=== PATIENT | male | born 1940 | race Caucasian/White ===

== ENCOUNTER 2017-05-25 07:06 | Emergency (ER) | payer MEDICARE ==
[~2017-05-25] VITALS: Ht 182.9 cm; Wt 110.0 kg
[~2017-05-25 07:06] MED LIST: ADULT ASA81 M1 OR; ALEVE220 MG OR; ALPRAZOLAM0.25 MG PO; AMIODARONE200 MG PO; ANTIVERT OR; ARICEPT10 MG OR; ARICEPT10 MG PO; ASPIRIN81 MG PO; ATENOLOL50 MG OR; AUGMENTIN875TAB OR; BAYER CHEWABLE81 MG PO; CARDURA4 MG OR; CEFEPIME2 GM IV; CELEXA40 MG OR; CENTRUM OR; CENTRUM PO; CIPRO500 MG OR; CIPROFLOXACN500 MG PO; COUMADIN5 M1 IV; COUMADIN5 MG OR; COUMADIN7.5 MG OR; DILAUDID2 MG OR; DOCUSATE CAL240 MG PO; DOXYCYCL HYC100 MG PO; DULOXETINE HCL60 MG PO; ENALAPRIL5 MG OR; FISH OIL OR; FLAX OIL PO; FLEXERIL5 M1 PO; FLOMAX0.4 MG OR; LISINOPRIL10 MG PO; LISINOPRIL20 MG PO; LISINOPRIL40 MG OR; LISINOPRIL5 MG OR; LORTAB 5 OR; LORTAB 5-325 MG1 TAB PO; LORTAB 5/3255 MG PO; LORTAB 7.5 OR; MEDDOSEPAK OR; MELOXICAM7.5 MG PO; MILK THISTLE250 MG PO; MILK THISTLE500 MG OR; MOBIC7.5 MG PO; MULTIVITAMI1 OR; MUPIROCIN2 % EX; NAPROXEN500 MG OR; OMEGA 31000 MG PO; OMEPRAZOLE20 MG OR; OMEPRAZOLE20 MG PO; ONDANSETRON4 MG PO; PAXIL20 MG OR; PERCOCET1 TA1 OR; PRAVACHOL40 MG PO; PRILOSEC OTC20 MG OR; PRILOSEC10 MG OR; PRILOSEC20 MG OR; PROBIOTIC ACIDOPHILU PO; RANITIDINE150 M1 PO; ROPINIROLE0.5 MG OR; ROPINIROLE0.5 MG PO; ROPINIROLE2 MG PO; SAVAYSA60 MG PO; SIMVASTATIN40 MG PO; SLEEP PO; TIZANIDINE2 MG PO; TRAMADOL HCL E100 M2 PO; TYLENOL500 MG OR; UNKNOWN MED; XANAX XR0.5 MG OR; XANAX0.25 MG PO; ZESTRIL40 MG OR; ZOCOR40 MG OR; ZOFRAN ODT4 MG SL; ZOSTAVAX IM; [UNRECOGNIZED DRUG - OTHER] PO
[2017-05-25] MEDS ORDERED: CYMBALTA60 MG PO (07:18)
[2017-05-25] MEDS ORDERED: PANTOPRAZOLE SO40 MG PO (07:18)
[2017-05-25] MEDS ORDERED: PRAVASTATIN20 MG PO (07:18)
[2017-05-25] MEDS ORDERED: DONEPEZIL5 MG PO (07:19)
[2017-05-25] MEDS ORDERED: LOSARTAN/HCT1 TA1 PO (07:22)
[2017-05-25] MEDS ORDERED: ROPINIROLE0.5 MG PO (07:23)
[2017-05-25] MEDS ORDERED: AMIODARONE200 MG PO (07:24)
[2017-05-25] MEDS ORDERED: ALPRAZOLAM0.25 MG PO (07:24)
[2017-05-25] MEDS ORDERED: ELIQUIS5 MG PO (07:24)
[2017-05-25] MEDS ORDERED: PERCOCET 5/325M1 TAB PO (07:47)
[2017-05-25 07:48] VITALS: BP 136/87
== END 2017-05-25 08:00 | disposition home or self-care (01) ==
LOC: ED 07:06
DX: S22.31XA Fracture of one rib, right side, initial encounter for closed fracture (principal); R07.81 Pleurodynia; W01.198A Fall on same level from slipping, tripping and stumbling with subsequent striking against other object, initial encounter; Y92.008 Other place in unspecified non-institutional (private) residence as the place of occurrence of the external cause

== ENCOUNTER 2017-07-16 13:59 | Emergency (ER) | payer MEDICARE ==
[~2017-07-16] VITALS: Ht 182.9 cm; Wt 120.0 kg
[~2017-07-16 13:59] MED LIST changes: +CYMBALTA60 MG PO; +DONEPEZIL5 MG PO; +ELIQUIS5 MG PO; +LOSARTAN/HCT1 TA1 PO; +PANTOPRAZOLE SO40 MG PO; +PERCOCET 5/325M1 TAB PO; +PRAVASTATIN20 MG PO
[2017-07-16 14:29] LABS: HEMATOCRIT 37.4 % (39.0-50.0); HEMOGLOBIN 12.3 g/dl (14.0-18.0); IMMATURE GRANULOCYTES 0.7 % (0.0-1.0); MEAN CELL VOLUME 101.6 fL CALC (80.0-100.0); MEAN CORPUSCULAR HGB 33.4 pG CALC (26.0-32.0); MEAN CORPUSCULAR HGB CONC 32.9 g/L CALC (32.0-36.0); NEUT# 5.48 thou/uL (1.82-7.42); RED BLOOD COUNT 3.68 mill/uL (4.70-6.10); RED CELL DISTRI WIDTH 12.4 % (11.5-15.5)
[2017-07-16 14:45] LABS: ALBUMIN 3.8 g/dL (3.2-5.0); ALKALINE PHOSPHATASE 67 u/l (38-126); ANION GAP 18 (6-22 (CALC)); BILIRUBIN, TOTAL 0.6 mg/dL (0.0-1.4); BUN 18 mg/dL (8-23); BUN/CREATININE RATIO 17 (12-20 (CALC)); CALCIUM 8.8 mg/dL (8.4-10.2); CARBON DIOXIDE 20 mmol/l (22-30); CHLORIDE 106 mmol/l (95-108); CREATININE 1.1 mg/dL (0.7-1.3); ETHYL ALCOHOL 165 mg/dl (0-30); GFR > 60 ML/MIN (>=60 (CALC)); GFR FOR AFR.AMER. > 60 ML/MIN (>=60 (CALC)); GLUCOSE 122 mg/dL (82-115); POTASSIUM 4.1 mmol/l (3.5-5.1); SGOT/AST 28 u/l (19-48); SGPT/ALT 28 u/l (11-66); SODIUM 140 mmol/l (137-146); TOTAL PROTEIN 6.7 g/dL (6.3-8.2)
[2017-07-16 14:56] LABS: MYOGLOBIN 88 ng/mL (0 - 121)
[2017-07-16 16:56] LABS: URINE BILIRUBIN - DIPSTICK NEGATIVE (NEGATIVE); URINE BLOOD DIPSTICK NEGATIVE (NEGATIVE); URINE CLARITY CLEAR; URINE COLOR YELLOW; URINE GLUCOSE - DIPSTICK NEGATIVE (NEGATIVE); URINE KETONE NEGATIVE (NEGATIVE); URINE LEUK ESTERASE NEGATIVE (NEGATIVE); URINE NITRITE - DIPSTICK NEGATIVE (Negative); URINE PH 5.5 (4.5-8.0); URINE PROTEIN - DIPSTICK NEGATIVE (NEG-TRACE); URINE SPECIFIC GRAVITY 1.015; URINE UROBILINOGEN - DIPSTICK 0.2 E.U./dL (0.2)
[2017-07-16 17:01] LABS: BARBITURATES NEGATIVE (NEGATIVE); COCAINE NEGATIVE (NEGATIVE); METHADONE NEGATIVE (NEGATIVE); OXCYCODONE NEGATIVE (NEGATIVE); TETRAHYDROCANNABIONOL NEGATIVE (NEGATIVE); TRICYLIC ANTIDEPRESSANTS NEGATIVE (NEGATIVE)
[2017-07-16 17:40] VITALS: BP 97/42
--- NOTE | 2017-07-18 09:55 | NUR ---
POSITIVE BLOOD CULTURE AFTER 24 HOURS OF NO GROWTH GRAM + COCCI I CALLED THE PATIENT AND HE IS EVCAUATING FROM [facility], THE PATIENT REPORTS FEELING WELL WITH NO FEVERS OR CHILLS I ADVISED THE PATINET TO GO TO THE ER IF CHILLS OR FEVER OCCUR OR IF HE BEGINS NOT TO FEEL WELL.
== END 2017-07-16 17:42 | disposition home or self-care (01) ==
LOC: ED 13:59
PROVIDERS: Emergency Medicine
DX: F10.929 Alcohol use, unspecified with intoxication, unspecified (principal); F19.90 Other psychoactive substance use, unspecified, uncomplicated; Y90.6 Blood alcohol level of 120-199 mg/100 ml; R41.82 Altered mental status, unspecified; R94.31 Abnormal electrocardiogram [ECG] [EKG]; I10 Essential (primary) hypertension; Z95.0 Presence of cardiac pacemaker; R55 Syncope and collapse; Y92.002 Bathroom of unspecified non-institutional (private) residence as the place of occurrence of the external cause

== ENCOUNTER 2018-02-21 02:29 | Inpatient (IN) | payer MEDICARE ==
[~2018-02-21] VITALS: Ht 182.9 cm; Wt 120.7 kg
--- NOTE | 2018-02-21 02:45 | NUR ---
BY WHEELCHAIR TO ROOM 9
[2018-02-21] MEDS ORDERED: CARBIDOPA/LEVOD1 TA4 PO (03:04)
[2018-02-21] MEDS ORDERED: MEMANTINE HCL10 MG PO (03:05)
[2018-02-21] MEDS ORDERED: EQ NATURAL LAX8.6 MG PO (03:06)
[2018-02-21] MEDS ORDERED: VITAMIN B 12100 MCG PO (03:07)
[2018-02-21] MEDS ORDERED: MILK THISTLE1000 MG PO (03:08)
[2018-02-21] MEDS ORDERED: COLON CLEANSE1 CAP PO (03:08)
[2018-02-21 03:56] LABS: HEMATOCRIT 46.9 % (39.0-50.0); HEMOGLOBIN 15.7 g/dl (14.0-18.0); IMMATURE GRANULOCYTES 2.7 % (0.0-1.0); MEAN CELL VOLUME 101.3 fL CALC (80.0-100.0); MEAN CORPUSCULAR HGB 33.9 pG CALC (26.0-32.0); MEAN CORPUSCULAR HGB CONC 33.5 g/L CALC (32.0-36.0); NEUT# 9.9 thou/uL (1.82-7.42); RED BLOOD COUNT 4.63 mill/uL (4.70-6.10); RED CELL DISTRI WIDTH 13.2 % (11.5-15.5)
[2018-02-21 04:25] LABS: ALBUMIN 3.9 g/dL (3.2-5.0); ALKALINE PHOSPHATASE 90 u/l (38-126); AMYLASE 90 u/l (30-110); ANION GAP 19 (6-22 (CALC)); BILIRUBIN, TOTAL 0.9 mg/dL (0.0-1.4); BUN 30 mg/dL (8-23); BUN/CREATININE RATIO 24 (12-20 (CALC)); CARBON DIOXIDE 22 mmol/l (22-30); CHLORIDE 105 mmol/l (95-108); CREATININE 1.3 mg/dL (0.7-1.3); GFR 53 ML/MIN (>=60 (CALC)); GFR FOR AFR.AMER. > 60 ML/MIN (>=60 (CALC)); LIPASE 244 u/l (23-300); POTASSIUM 4.7 mmol/l (3.5-5.1); SGOT/AST 31 u/l (19-48); SGPT/ALT 51 u/l (11-66); SODIUM 142 mmol/l (137-146); TOTAL PROTEIN 7.1 g/dL (6.3-8.2)
--- NOTE | 2018-02-21 05:21 | NUR ---
ADVISED OF CONTINUING NPO STATUS,PT HAS NO BELCHING OR VOMITING.
--- NOTE | 2018-02-21 06:28 | NUR ---
REPORT TO BROOKLYN MEJÍA ON MS
--- NOTE | 2018-02-21 06:35 | NUR ---
PT TO MS2 VIA STRETCHER RN ESCORT IN IMPROVED STABLE CONDITION.TOTAL NG OUTPUT 650CC
[2018-02-21 06:38] VITALS: BP 156/77
--- NOTE | 2018-02-21 07:00 | NUR ---
PATIENT ARRIVED TO THE FLOOR AT 0638 VIA STRETCHER WITH ER STAFF IN ATTENDANCE. PATIENT AWAKE ALERT AND ORIENTEDX3. PATIENT WITH MIN ASSIST FROM STRETCHER TO BED WITH USE OF CANE-UNSTEADY GAIT. PATIENT WITH IVF NS PATENT WITH BOLUS IN PROGRESS VIA LEFT FOREARM SITE. SITE APPEARS HEALTHY AT THIS TIME. PATIENT WITH #16 POLISH NGT TO LIWS-DRAINING SMALL AMT OF BEIGE FLUID. ABD IS DISTENDED BUT SOFT-PATIENT STATES THAT HE IS FEELING MUCH BETTER AT THIS TIME. NPO, AT BEDSIDE. ORIENTED TO ROOM AND SURROUNDINGS. INSTRUCTED ON USE OF NURSE CALL LIGHT SYSTEM AND TV REMOTE. PATIENT WITH HISTORY OF MRSA-NASAL SWAB OBTAINED AND PATIENT PLACE ON CONTACT FOR HX OF MRSA. CALL LIGHT IN REACH. WILL CONT TO MONITOR.
--- NOTE | 2018-02-21 07:15 | NUR ---
RECEIVED BEDSIDE REPORT FROM BROOKLYN MEJÍA. RESTING IN SEMI FOWLERS, RESPS EVEN AND UNLABORED ON ROOM AIR, NG TUBE TO LIS, DRAINING SMALL AMT BEIGE COLORED FLUID. ABD DISTENDED, SOFT, PT REPORTS FEELING MUCH BETTER THAN A FEW HOURS AGO. #20 LFA INFUSING WITHOUT DIFFICULTY, SITE APPEARS HEALTHY. AT BEDSIDE. PLAN OF CARE DISCUSSED. SAFETY PRECAUTIONS REINFORCED. BED IN LOWEST POSITION WITH WHEELS LOCKED. CALL LIGHT WITHIN REACH. ENCOURAGED PT AND TO CALL FOR ANY NEEDS.
[2018-02-21 07:37] VITALS: BP 148/71
[2018-02-21 08:33] LABS: URINE BILIRUBIN - DIPSTICK NEGATIVE (NEGATIVE); URINE BLOOD DIPSTICK NEGATIVE (NEGATIVE); URINE COLOR YELLOW; URINE GLUCOSE - DIPSTICK NEGATIVE (NEGATIVE); URINE KETONE NEGATIVE (NEGATIVE); URINE LEUK ESTERASE NEGATIVE (NEGATIVE); URINE NITRITE - DIPSTICK NEGATIVE (Negative); URINE PROTEIN - DIPSTICK NEGATIVE (NEG-TRACE)
[2018-02-21 08:34] LABS: URINE CLARITY CLEAR
--- NOTE | 2018-02-21 11:08 | NUR ---
ASSISTED TO BATHROOM WITH STAND BY ASSIST. LARGE FORMED BROWN BM WITH STRONG ODOR. PT REPORTS "FEELING LIKE A WEIGHT LIFTED OFF ME." NG TUBE PATENT TO LEFT NARE, LIS WITH BEIGE FLUID. #20 LFA INFUSING WITHOUT DIFFICULTY, SITE APPEARS HEALTHY. CALL LIGHT WITHIN REACH. WILL CONTINUE TO MONITOR.
[2018-02-21 11:44] VITALS: BP 142/72
--- NOTE | 2018-02-21 12:30 | NUR ---
DR ALVES AT BEDSIDE, NEW ORDERS RECEIVED.
--- NOTE | 2018-02-21 14:18 | NUR ---
TO RADIOLOGY IN STABLE CONDITION VIA WHEELCHAIR ACCOMPANIED BY ALAN EDMONDSON.
--- NOTE | 2018-02-21 14:35 | NUR ---
RETURNED FROM RADIOLOGY VIA WHEELCHAIR ACCOMPANIED BY ALAN EDMONDSON. AMBULATED TO BEDSIDE CHAIR WITH STAND BY ASSIST. RESPS EVEN AND UNABORED ON ROOM AIR, TELE MONITOR IN PLACE. #20 LFA INFUSING WITHOUT DIFFICULTY, SITE APPEARS HEALTHY. NG TUBE TO LIS IN LEFT NARE, DRAINING BEIGE COLORED FLUID. DENIES PAIN OR DISCOMFORT. CALL LIGHT WITHIN REACH. WILL CONTINUE TO MONITOR.
--- NOTE | 2018-02-21 15:00 | NUR ---
DR CONTRERAS AT BEDSIDE, NEW ORDERS RECEIVED.
[2018-02-21 16:24] LABS: C. DIFFICILE TOXIN A&B NEGATIVE (NEGATIVE)
--- NOTE | 2018-02-21 16:33 | NUR ---
ASSISTED TO BATHROOM WITH STAND BY ASSIST, LISA TAYLOR FORMED BM. RESPS EVEN AND UNLABORED ON ROOM AIR, TELE MONITOR IN PLACE. #20 LFA INFUSING WITHOUT DIFFICULTY, SITE APPEARS HEALTHY. DENIES PAIN OR DISCOMFORT. PO FLUIDS OFFERED. CALL LIGHT WITHIN REACH. ENCOURAGED PT TO CALL FOR ANY NEEDS.
[2018-02-21 16:45] VITALS: BP 144/70
--- NOTE | 2018-02-21 18:02 | NUR ---
TOLERATED LIQUID DIET WITHOUT C/O NAUSEA OR ABD PAIN.
--- NOTE | 2018-02-21 19:45 | NUR ---
PATIENT AWAKE ALERT AND ORIENTEDX3-ASSISTED TO STAND AT THE SIDE OF THE BED TO VOID 600CC O F CLEAR YELLOW URINE. ASSISTED BACK TO THE BED. NO COMPLAINTS AT THIS TIME-STATES FEELING MUCH BETTER TONIGHT-NO N/V, NO PAIN. HAVING BM'S TODAY. ABD IS SOFT WITH BS+. LUNGS CLEAR. NO PEDAL EDEMA NOTED WITH PULSES PALPABLE. TELE MONITORING DEVICE IN PLACE SHOWING SR WITH ER MONITORING. IV SITE TO LEFT ARM WITH IVF PATENT AND INFUSING ORDERED. SITE APPEARS HEALTHY AT THIS TIME. SAFETY PRECAUTIONS REINFORCED.CALL LIGHT IN REACH. WILL CONT TO MONITOR.
[2018-02-21 20:01] VITALS: BP 179/72
[2018-02-21 20:54] VITALS: BP 151/69
[2018-02-22 00:01] VITALS: BP 168/72
--- NOTE | 2018-02-22 00:08 | NUR ---
PATIENT RESTING IN BED WITH NO COMPLAINTS AT THIS TIME. IV ZOSYN HUNG ORDERED. VS TAKEN AND RECORDED. PATIENT WITH CHRONIC HIP AND BACK PAIN BUT DECLINES ANY PAIN MEDS AT THIS TIME. CONT TO VOID CLER YELLOW URINE IN URINAL. SAFETY PRECAUTIONS REINFORCED.CALL LIGHT IN REACH. WILL CONT TO MONITOR.
[2018-02-22 03:50] VITALS: BP 157/77
[2018-02-22 04:49] LABS: MEAN CELL VOLUME 103.9 fL CALC (80.0-100.0); MEAN CORPUSCULAR HGB 34.3 pG CALC (26.0-32.0); RED BLOOD COUNT 3.88 mill/uL (4.70-6.10)
--- NOTE | 2018-02-22 04:55 | NUR ---
PATIENT CONT TO VOID CLEAR YELLOW URINE IN URINAL. NO COMPLAINTS AT THIS TIME. IVF NS PATENT AND INFUSING AT 100CC/HR. VS TAKEN AND RECORDED. CALL LIGHT IN REACH. WILL CONT TO MONITOR.
[2018-02-22 04:57] LABS: HEMATOCRIT 40.3 % (39.0-50.0); HEMOGLOBIN 13.3 g/dl (14.0-18.0)
[2018-02-22 05:02] LABS: ANION GAP 12 (6-22 (CALC)); BUN 21 mg/dL (8-23); BUN/CREATININE RATIO 20 (12-20 (CALC)); CARBON DIOXIDE 25 mmol/l (22-30); CHLORIDE 107 mmol/l (95-108); CREATININE 1.1 mg/dL (0.7-1.3); GFR > 60 ML/MIN (>=60 (CALC)); GFR FOR AFR.AMER. > 60 ML/MIN (>=60 (CALC)); POTASSIUM 4.5 mmol/l (3.5-5.1); SODIUM 139 mmol/l (137-146)
--- NOTE | 2018-02-22 07:22 | NUR ---
RECEIVED BEDSIDE REPORT FROM BROOKLYN MEJÍA. RESTING IN SEMI FOWLERS WITH EYES CLOSED, AWAKENS EASILY. RESPS EVEN AND UNLABORED ON ROOM AIR, TELE MONITOR IN PLACE. #20 LFA INFUSING WITHOUT DIFFICULTY. SITE APPEARS HEALTHY. DENIES PAIN OR DISCOMFORT. PLAN OF CARE DISCUSSED. SAFETY PRECAUTIONS REINFORCED. BED IN LOWEST POSITION WITH WHEELS LOCKED. CALL LIGHT WITHIN REACH. ENCOURAGED PT TO CALL FOR ANY NEEDS.
[2018-02-22 07:34] VITALS: BP 150/70
[2018-02-22 08:09] VITALS: BP 150/70
--- NOTE | 2018-02-22 08:53 | NUR ---
TOLERATED REGULAR DIET WITHOUT C/O ABD PAIN OR NAUSEA.
--- NOTE | 2018-02-22 09:20 | NUR ---
DR ALVES AT BEDSIDE, NEW ORDERS RECEIVED.
[2018-02-22] MEDS ORDERED: METRONIDAZOL500 MG PO (10:02)
[2018-02-22] MEDS ORDERED: AUGMENTIN875TAB PO (10:02)
--- NOTE | 2018-02-22 11:14 | NUR ---
IV site discontinued, cath intact. No edema , no redness, voices no discomfort.
--- NOTE | 2018-02-22 11:30 | NUR ---
Discharge instructions given. Patient verbalizes understanding of same. Discharged in stable condition via Wheelchair to Home with spouse. All belongings sent with pt.
== END 2018-02-22 11:29 | disposition home or self-care (01) | DRG 390 ==
LOC: ED 02:29 → ED-I 05:45 → ED 06:25 → MS2 06:26
PROVIDERS: Emergency Medicine; ADMIT Internal Medicine; ATTEND Internal Medicine
PROC: 0D9670Z Drainage of Stomach with Drainage Device, Via Natural or Artificial Opening (ICD-10-PCS; principal; 2018-02-21)
DX: K56.609 Unspecified intestinal obstruction, unspecified as to partial versus complete obstruction (principal); G20 Parkinson's disease; I48.91 Unspecified atrial fibrillation; F32.9 Major depressive disorder, single episode, unspecified; F41.9 Anxiety disorder, unspecified; G25.81 Restless legs syndrome; G31.84 Mild cognitive impairment of uncertain or unknown etiology; I10 Essential (primary) hypertension; M19.90 Unspecified osteoarthritis, unspecified site; K64.9 Unspecified hemorrhoids; G47.30 Sleep apnea, unspecified; Z86.711 Personal history of pulmonary embolism; Z95.2 Presence of prosthetic heart valve; Z95.0 Presence of cardiac pacemaker; Z22.322 Carrier or suspected carrier of Methicillin resistant Staphylococcus aureus
CPT/HCPCS: Q9967; S0164

== ENCOUNTER 2019-01-31 06:48 | Emergency (ER) | payer MEDICARE ==
[~2019-01-31] VITALS: Ht 182.9 cm; Wt 121.8 kg
[~2019-01-31 06:48] MED LIST changes: +AUGMENTIN875TAB PO; +CARBIDOPA/LEVOD1 TA4 PO; +COLON CLEANSE1 CAP PO; +EQ NATURAL LAX8.6 MG PO; +MEMANTINE HCL10 MG PO; +METRONIDAZOL500 MG PO; +MILK THISTLE1000 MG PO; +VITAMIN B 12100 MCG PO
[2019-01-31 07:40] LABS: HEMATOCRIT 40.6 % (39.0-50.0); HEMOGLOBIN 13.2 g/dl (14.0-18.0); IMMATURE GRANULOCYTES 0.7 % (0.0-5.0); MEAN CELL VOLUME 100.2 fL CALC (80.0-100.0); MEAN CORPUSCULAR HGB 32.6 pG CALC (26.0-32.0); MEAN CORPUSCULAR HGB CONC 32.5 g/L CALC (32.0-36.0); NEUT# 3.76 thou/uL (1.82-7.42); RED BLOOD COUNT 4.05 mill/uL (4.70-6.10); RED CELL DISTRI WIDTH 13.2 % (11.5-15.5)
[2019-01-31 08:02] LABS: ALBUMIN 3.7 g/dL (3.2-5.0); ALKALINE PHOSPHATASE 76 u/l (38-126); ANION GAP 11 (6-22 (CALC)); BILIRUBIN, TOTAL 0.8 mg/dL (0.0-1.4); BUN 15 mg/dL (8-23); BUN/CREATININE RATIO 15 (12-20 (CALC)); CARBON DIOXIDE 27 mmol/l (22-30); CHLORIDE 106 mmol/l (95-108); GFR > 60 ML/MIN (>=60 (CALC)); GFR FOR AFR.AMER. > 60 ML/MIN (>=60 (CALC)); POTASSIUM 4.3 mmol/l (3.5-5.1); SGOT/AST 30 u/l (19-48); SODIUM 140 mmol/l (137-146); TOTAL PROTEIN 6.3 g/dL (6.3-8.2)
[2019-01-31 09:18] VITALS: BP 165/56
== END 2019-01-31 09:22 | disposition home or self-care (01) ==
LOC: ED 06:48
PROVIDERS: Emergency Medicine
DX: S80.11XA Contusion of right lower leg, initial encounter (principal); I10 Essential (primary) hypertension; I48.91 Unspecified atrial fibrillation; G20 Parkinson's disease; W19.XXXA Unspecified fall, initial encounter; Z86.711 Personal history of pulmonary embolism; Z79.01 Long term (current) use of anticoagulants; M79.661 Pain in right lower leg; M79.89 Other specified soft tissue disorders

== ENCOUNTER 2019-07-04 09:33 | Emergency (ER) | payer MEDICARE ==
[~2019-07-04] VITALS: Ht 182.9 cm; Wt 123.0 kg
[2019-07-04 11:01] LABS: HEMATOCRIT 41.3 % (39.0-50.0); HEMOGLOBIN 13.6 g/dl (14.0-18.0); IMMATURE GRANULOCYTES 0.6 % (0.0-5.0); MEAN CELL VOLUME 99.5 fL CALC (80.0-100.0); MEAN CORPUSCULAR HGB 32.8 pG CALC (26.0-32.0); MEAN CORPUSCULAR HGB CONC 32.9 g/L CALC (32.0-36.0); NEUT# 4.52 thou/uL (1.82-7.42); RED BLOOD COUNT 4.15 mill/uL (4.70-6.10); RED CELL DISTRI WIDTH 13.2 % (11.5-15.5)
[2019-07-04] MEDS ORDERED: ELIQUIS5 MG PO (11:08)
[2019-07-04 11:09] LABS: ALBUMIN 4.1 g/dL (3.2-5.0); ALKALINE PHOSPHATASE 67 u/l (38-126); AMYLASE 112 u/l (30-110); ANION GAP 9 (6-22 (CALC)); BILIRUBIN, TOTAL 0.7 mg/dL (0.0-1.4); BUN 20 mg/dL (8-23); BUN/CREATININE RATIO 16 (12-20 (CALC)); CARBON DIOXIDE 28 mmol/l (22-30); CHLORIDE 107 mmol/l (95-108); CREATININE 1.2 mg/dL (0.7-1.3); GFR 58 ML/MIN (>=60 (CALC)); GFR FOR AFR.AMER. > 60 ML/MIN (>=60 (CALC)); LIPASE 188 u/l (23-300); POTASSIUM 4.5 mmol/l (3.5-5.1); SGOT/AST 48 u/l (19-48); SODIUM 139 mmol/l (137-146); TOTAL PROTEIN 7.1 g/dL (6.3-8.2)
[2019-07-04] MEDS ORDERED: LEVO PO (11:10)
[2019-07-04] MEDS ORDERED: CARB PO (11:10)
[2019-07-04] MEDS ORDERED: PRAVASTATIN40 MG PO (11:10)
[2019-07-04] MEDS ORDERED: CYMBALTA60 MG PO (11:11)
[2019-07-04] MEDS ORDERED: COZAAR25 MG PO (11:11)
[2019-07-04] MEDS ORDERED: MEMANTINE HCL10 MG PO (11:11)
[2019-07-04] MEDS ORDERED: MECLIZINE HCL25 MG PO (11:12)
[2019-07-04] MEDS ORDERED: AMIODARONE200 MG PO (11:12)
[2019-07-04] MEDS ORDERED: DONEPEZIL10 MG PO (11:13)
[2019-07-04] MEDS ORDERED: ROPINIROLE0.5 MG PO (11:13)
[2019-07-04] MEDS ORDERED: PROTONIX40 M2 PO (11:13)
[2019-07-04] MEDS ORDERED: VITAMIN B-121000 MCG PO (11:14)
[2019-07-04] MEDS ORDERED: MILK THISTLE175 M1 PO (11:15)
[2019-07-04 12:42] LABS: URINE BILIRUBIN - DIPSTICK NEGATIVE (NEGATIVE); URINE BLOOD DIPSTICK NEGATIVE (NEGATIVE); URINE COLOR YELLOW; URINE GLUCOSE - DIPSTICK NEGATIVE (NEGATIVE); URINE KETONE NEGATIVE (NEGATIVE); URINE LEUK ESTERASE NEGATIVE (NEGATIVE); URINE NITRITE - DIPSTICK NEGATIVE (Negative); URINE PROTEIN - DIPSTICK NEGATIVE (NEG-TRACE); URINE UROBILINOGEN - DIPSTICK 0.2 E.U./dL (0.2)
[2019-07-04] MEDS ORDERED: VICODIN1 TA1 PO (14:12)
[2019-07-04 14:15] VITALS: BP 116/56
== END 2019-07-04 14:34 | disposition home or self-care (01) ==
LOC: ED 09:33
DX: K43.9 Ventral hernia without obstruction or gangrene (principal); I10 Essential (primary) hypertension; I48.91 Unspecified atrial fibrillation; G20 Parkinson's disease; Z95.2 Presence of prosthetic heart valve
CPT/HCPCS: Q9967

== ENCOUNTER 2019-11-11 | Emergency (ER) | payer MEDICARE ==
[~2019-11-11] MED LIST changes: +CARB PO; +COZAAR25 MG PO; +DONEPEZIL10 MG PO; +LEVO PO; +MECLIZINE HCL25 MG PO; +MILK THISTLE175 M1 PO; +PRAVASTATIN40 MG PO; +PROTONIX40 M2 PO; +VICODIN1 TA1 PO; +VITAMIN B-121000 MCG PO
[2019-11-11 15:49] LABS: HEMATOCRIT 42.1 % (39.0-50.0); HEMOGLOBIN 13.7 g/dl (14.0-18.0); IMMATURE GRANULOCYTES 0.8 % (0.0-5.0); MEAN CELL VOLUME 99.5 fL CALC (80.0-100.0); MEAN CORPUSCULAR HGB 32.4 pG CALC (26.0-32.0); MEAN CORPUSCULAR HGB CONC 32.5 g/L CALC (32.0-36.0); NEUT# 6.09 thou/uL (1.82-7.42); RED BLOOD COUNT 4.23 mill/uL (4.70-6.10); RED CELL DISTRI WIDTH 13.2 % (11.5-15.5)
[2019-11-11 16:08] LABS: ALBUMIN 3.9 g/dL (3.2-5.0); ALKALINE PHOSPHATASE 74 u/l (38-126); ANION GAP 11 (6-22 (CALC)); BILIRUBIN, TOTAL 0.7 mg/dL (0.0-1.4); BUN 19 mg/dL (8-23); BUN/CREATININE RATIO 18 (12-20 (CALC)); CARBON DIOXIDE 26 mmol/l (22-30); CHLORIDE 106 mmol/l (95-108); CREATININE 1.1 mg/dL (0.7-1.3); GFR > 60 ML/MIN (>=60 (CALC)); GFR FOR AFR.AMER. > 60 ML/MIN (>=60 (CALC)); LIPASE 116 u/l (23-300); POTASSIUM 4.4 mmol/l (3.5-5.1); SGOT/AST 35 u/l (19-48); SODIUM 139 mmol/l (137-146); TOTAL PROTEIN 6.9 g/dL (6.3-8.2)
[2019-11-11 17:21] LABS: URINE BLOOD DIPSTICK TRACE-INTACT (NEGATIVE); URINE COLOR YELLOW; URINE GLUCOSE - DIPSTICK NEGATIVE (NEGATIVE); URINE KETONE NEGATIVE (NEGATIVE); URINE LEUK ESTERASE NEGATIVE (NEGATIVE); URINE NITRITE - DIPSTICK NEGATIVE (Negative); URINE PH 5.5 (4.5-8.0); URINE PROTEIN - DIPSTICK NEGATIVE (NEG-TRACE); URINE SPECIFIC GRAVITY >=1.030
[2019-11-11 17:26] LABS: URINE BILIRUBIN - DIPSTICK NEGATIVE (NEGATIVE)
[2019-11-11] MEDS ORDERED: CYCLOBENZAPR5 MG PO (17:36)
== END 2019-11-11 18:13 | disposition home or self-care (01) ==
PROVIDERS: Family Medicine
DX: R10.9 Unspecified abdominal pain (principal); I10 Essential (primary) hypertension; I48.91 Unspecified atrial fibrillation; G20 Parkinson's disease; Z95.0 Presence of cardiac pacemaker; Z86.711 Personal history of pulmonary embolism

== ENCOUNTER 2019-12-08 | Emergency (ER) | payer MEDICARE ==
[~2019-12-08] MED LIST changes: +CYCLOBENZAPR5 MG PO
[2019-12-08] MEDS ORDERED: NAPROXEN500 MG PO ×2 (11:25→11:41)
== END 2019-12-08 11:50 | disposition home or self-care (01) ==
DX: M19.072 Primary osteoarthritis, left ankle and foot (principal); I10 Essential (primary) hypertension; I48.91 Unspecified atrial fibrillation; G20 Parkinson's disease

== ENCOUNTER 2020-06-30 10:36 | Emergency (ER) | payer MEDICARE ==
[~2020-06-30] VITALS: Ht 182.9 cm; Wt 102.3 kg
[~2020-06-30 10:36] MED LIST changes: +NAPROXEN500 MG PO
[2020-06-30 11:31] LABS: GFR 58 ML/MIN (>=60 (CALC)); GFR FOR AFR.AMER. > 60 ML/MIN (>=60 (CALC))
[2020-06-30 11:34] LABS: HEMATOCRIT 42.5 % (39.0-50.0); HEMOGLOBIN 13.6 g/dl (14.0-18.0); IMMATURE GRANULOCYTES 0.4 % (0.0-5.0); MEAN CELL VOLUME 99.8 fL CALC (80.0-100.0); MEAN CORPUSCULAR HGB 31.9 pG CALC (26.0-32.0); NEUT# 5.36 thou/uL (1.82-7.42); RED BLOOD COUNT 4.26 mill/uL (4.70-6.10)
[2020-06-30 11:34] LABS: URINE BILIRUBIN - DIPSTICK NEGATIVE (NEGATIVE); URINE BLOOD DIPSTICK TRACE-INTACT (NEGATIVE); URINE COLOR YELLOW; URINE GLUCOSE - DIPSTICK NEGATIVE (NEGATIVE); URINE KETONE NEGATIVE (NEGATIVE); URINE LEUK ESTERASE NEGATIVE (NEGATIVE); URINE NITRITE - DIPSTICK NEGATIVE (Negative); URINE PROTEIN - DIPSTICK NEGATIVE (NEG-TRACE)
[2020-06-30 11:46] LABS: ALBUMIN 4.1 g/dL (3.2-5.0); ALKALINE PHOSPHATASE 75 u/l (38-126); ANION GAP 9 (6-22 (CALC)); BILIRUBIN, TOTAL 1.1 mg/dL (0.0-1.4); BUN 14 mg/dL (8-23); BUN/CREATININE RATIO 14 (12-20 (CALC)); CARBON DIOXIDE 25 mmol/l (22-30); CHLORIDE 107 mmol/l (95-108); GFR > 60 ML/MIN (>=60 (CALC)); GFR FOR AFR.AMER. > 60 ML/MIN (>=60 (CALC)); LIPASE 72 u/l (23-300); POTASSIUM 4.3 mmol/l (3.5-5.1); SGOT/AST 33 u/l (19-48); SODIUM 138 mmol/l (137-146); TOTAL PROTEIN 6.9 g/dL (6.3-8.2)
[2020-06-30 13:42] VITALS: BP 148/67
== END 2020-06-30 13:48 | disposition home or self-care (01) ==
LOC: ED 10:36
PROVIDERS: Family Medicine
DX: K43.9 Ventral hernia without obstruction or gangrene (principal); I10 Essential (primary) hypertension; I48.91 Unspecified atrial fibrillation; G20 Parkinson's disease; Z86.711 Personal history of pulmonary embolism; Z95.2 Presence of prosthetic heart valve
CPT/HCPCS: Q9967

== ENCOUNTER 2021-01-19 07:02 | Emergency (ER) | payer MEDICARE ==
[~2021-01-19] VITALS: Ht 182.9 cm; Wt 118.1 kg
[2021-01-19] MEDS ORDERED: VIT B-COMPLX100 MG IJ (07:22)
[2021-01-19] MEDS ORDERED: SENNA8.6 MG PO (07:22)
[2021-01-19 08:30] VITALS: BP 142/67
[2021-01-19] MEDS ORDERED: TORADOL PO ×2 (08:31→09:03)
== END 2021-01-19 08:40 | disposition home or self-care (01) ==
LOC: ED 07:02
DX: S22.080A Wedge compression fracture of T11-T12 vertebra, initial encounter for closed fracture (principal); M25.552 Pain in left hip; M47.816 Spondylosis without myelopathy or radiculopathy, lumbar region; I10 Essential (primary) hypertension; I48.91 Unspecified atrial fibrillation; G20 Parkinson's disease; F32.9 Major depressive disorder, single episode, unspecified; F41.9 Anxiety disorder, unspecified; W01.0XXA Fall on same level from slipping, tripping and stumbling without subsequent striking against object, initial encounter; Y92.009 Unspecified place in unspecified non-institutional (private) residence as the place of occurrence of the external cause; Z95.0 Presence of cardiac pacemaker; Z86.711 Personal history of pulmonary embolism

== ENCOUNTER 2021-06-30 14:09 | Emergency (ER) | payer MEDICARE ==
[~2021-06-30] VITALS: Ht 182.9 cm; Wt 118.0 kg
[~2021-06-30 14:09] MED LIST changes: +SENNA8.6 MG PO; +TORADOL PO; +VIT B-COMPLX100 MG IJ
[2021-06-30 14:56] LABS: HEMATOCRIT 42.6 % (39.0-50.0); HEMOGLOBIN 13.5 g/dl (14.0-18.0); IMMATURE GRANULOCYTES 0.3 % (0.0-5.0); MEAN CELL VOLUME 103.9 fL CALC (80.0-100.0); MEAN CORPUSCULAR HGB 32.9 pG CALC (26.0-32.0); MEAN CORPUSCULAR HGB CONC 31.7 g/dL CAL (32.0-36.0); NEUT# 6.7 thou/uL (1.82-7.42); RED BLOOD COUNT 4.1 mill/uL (4.70-6.10); RED CELL DISTRI WIDTH 12.5 % (11.5-15.5)
[2021-06-30 15:07] LABS: ALKALINE PHOSPHATASE 62 u/l (38-126); BILIRUBIN, TOTAL 0.6 mg/dL (0.0-1.4); BUN 26 mg/dL (8-23); BUN/CREATININE RATIO 20 (12-20 (CALC)); CARBON DIOXIDE 24 mmol/l (22-30); CHLORIDE 106 mmol/l (95-108); CREATININE 1.3 mg/dL (0.7-1.3); GFR 53 ML/MIN (>=60 (CALC)); GFR FOR AFR.AMER. > 60 ML/MIN (>=60 (CALC)); LIPASE 416 u/l (23-300); SGOT/AST 45 u/l (19-48); SODIUM 138 mmol/l (137-146); TOTAL PROTEIN 7.2 g/dL (6.3-8.2)
[2021-06-30 15:08] LABS: ALBUMIN 4.4 g/dL (3.2-5.0); ANION GAP 13 (6-22 (CALC)); POTASSIUM 5.3 mmol/l (3.5-5.1)
[2021-06-30 18:15] VITALS: BP 114/88
[2021-08-17] MEDS ORDERED: MILK THISTL2 PO (12:35)
== END 2021-06-30 18:15 | disposition home or self-care (01) ==
LOC: ED 14:09
PROVIDERS: Family Medicine
DX: R10.84 Generalized abdominal pain (principal); K43.9 Ventral hernia without obstruction or gangrene; I10 Essential (primary) hypertension; I48.91 Unspecified atrial fibrillation; G20 Parkinson's disease; F32.9 Major depressive disorder, single episode, unspecified; F41.9 Anxiety disorder, unspecified; Z86.711 Personal history of pulmonary embolism; Z95.0 Presence of cardiac pacemaker; Z95.2 Presence of prosthetic heart valve
CPT/HCPCS: Q9967

== ENCOUNTER 2021-08-21 06:18 | Day surgery (SDC) | payer MEDICARE ==
[~2021-08-21] VITALS: Ht 172.7 cm; Wt 118.8 kg
[~2021-08-21 06:18] MED LIST changes: +MILK THISTL2 PO
[2021-08-21 08:51] VITALS: BP 157/66
== END 2021-08-21 08:55 | disposition home or self-care (01) ==
LOC: ENDO 06:18 → ORM 07:45 → ENDO 07:45 → ORM 08:45 → ENDO 08:55
PROVIDERS: ATTEND Surgery
PROC: 0DBM8ZX Excision of Descending Colon, Via Natural or Artificial Opening Endoscopic, Diagnostic (ICD-10-PCS; principal; 2021-08-21)
PROC: 0DBN8ZX Excision of Sigmoid Colon, Via Natural or Artificial Opening Endoscopic, Diagnostic (ICD-10-PCS; 2021-08-21)
PROC: 0DJ08ZZ Inspection of Upper Intestinal Tract, Via Natural or Artificial Opening Endoscopic (ICD-10-PCS; 2021-08-21)
PROC: 3E0H8GC Introduction of Other Therapeutic Substance into Lower GI, Via Natural or Artificial Opening Endoscopic (ICD-10-PCS; 2021-08-21)
DX: Z12.11 Encounter for screening for malignant neoplasm of colon (principal); D12.4 Benign neoplasm of descending colon; D12.5 Benign neoplasm of sigmoid colon; K57.30 Diverticulosis of large intestine without perforation or abscess without bleeding; K29.70 Gastritis, unspecified, without bleeding; K44.9 Diaphragmatic hernia without obstruction or gangrene; I10 Essential (primary) hypertension; E78.5 Hyperlipidemia, unspecified; Z18.89 Other specified retained foreign body fragments; Z80.0 Family history of malignant neoplasm of digestive organs

== ENCOUNTER 2022-10-05 07:36 | Emergency (ER) | payer MEDICARE ==
[~2022-10-05] VITALS: Ht 172.7 cm; Wt 113.6 kg
[2022-10-05 07:52] VITALS: BP 156/55
[2022-10-05 08:16] VITALS: BP 150/71
[2022-10-05 08:17] LABS: HEMOGLOBIN 11.6 g/dl (14.0-18.0); IMMATURE GRANULOCYTES 0.2 % (0.0-5.0); MEAN CELL VOLUME 100.9 fL CALC (80.0-100.0); MEAN CORPUSCULAR HGB 33.4 pG CALC (26.0-32.0); MEAN CORPUSCULAR HGB CONC 33.1 g/dL CAL (32.0-36.0); NEUT# 6.11 thou/uL (1.82-7.42); RED BLOOD COUNT 3.47 mill/uL (4.70-6.10); RED CELL DISTRI WIDTH 12.9 % (11.5-15.5)
[2022-10-05 08:31] VITALS: BP 125/45
[2022-10-05 08:40] LABS: ALBUMIN 3.7 g/dL (3.2-5.0); ALKALINE PHOSPHATASE 68 u/l (38-126); ANION GAP 11 (6-22 (CALC)); BILIRUBIN, TOTAL 0.8 mg/dL (0.0-1.4); BUN 25 mg/dL (8-23); BUN/CREATININE RATIO 23 (12-20 (CALC)); CARBON DIOXIDE 24 mmol/l (22-30); CHLORIDE 110 mmol/l (95-108); CREATININE 1.1 mg/dL (0.7-1.3); GFR FOR AFR.AMER. > 60 ML/MIN (>=60 (CALC)); GFR OTHER RACES > 60 ML/MIN (>=60 (CALC)); POTASSIUM 4.4 mmol/l (3.5-5.1); SGOT/AST 21 u/l (19-48); SODIUM 140 mmol/l (137-146); TOTAL PROTEIN 6.3 g/dL (6.3-8.2)
[2022-10-05 08:46] VITALS: BP 135/56
[2022-10-05 09:01] VITALS: BP 139/50
[2022-10-05 09:13] VITALS: BP 139/50
== END 2022-10-05 09:33 | disposition home or self-care (01) ==
LOC: ED 07:36
PROVIDERS: Family Medicine
DX: S80.01XA Contusion of right knee, initial encounter (principal); S80.11XA Contusion of right lower leg, initial encounter; I10 Essential (primary) hypertension; E78.5 Hyperlipidemia, unspecified; W01.0XXA Fall on same level from slipping, tripping and stumbling without subsequent striking against object, initial encounter; Y92.009 Unspecified place in unspecified non-institutional (private) residence as the place of occurrence of the external cause; Z79.01 Long term (current) use of anticoagulants

== ENCOUNTER 2022-10-12 11:23 | Inpatient (IN) | payer MEDICARE ==
[2022-10-12] VITALS (24 sets, daily range): BP systolic 127–171; BP diastolic 57–80
[~2022-10-12] VITALS: Ht 172.7 cm; Wt 114.0 kg
--- NOTE | 2022-10-12 11:31 | NUR ---
PATIENT ESCORTED TO ROOM IN NAD. PROVIDER NOTIFIED OF PATIENT STATUS.
[2022-10-12 12:05] LABS: HEMATOCRIT 39.8 % (39.0-50.0); IMMATURE GRANULOCYTES 0.3 % (0.0-5.0); MEAN CELL VOLUME 101.8 fL CALC (80.0-100.0); MEAN CORPUSCULAR HGB 33.2 pG CALC (26.0-32.0); MEAN CORPUSCULAR HGB CONC 32.7 g/dL CAL (32.0-36.0); NEUT# 9.03 thou/uL (1.82-7.42); RED BLOOD COUNT 3.91 mill/uL (4.70-6.10); RED CELL DISTRI WIDTH 12.7 % (11.5-15.5)
[2022-10-12 12:18] LABS: ALBUMIN 4.3 g/dL (3.2-5.0); ALKALINE PHOSPHATASE 78 u/l (38-126); ANION GAP 10 (6-22 (CALC)); BILIRUBIN, TOTAL 0.5 mg/dL (0.0-1.4); BUN 20 mg/dL (8-23); BUN/CREATININE RATIO 19 (12-20 (CALC)); CARBON DIOXIDE 28 mmol/l (22-30); CHLORIDE 108 mmol/l (95-108); GFR FOR AFR.AMER. > 60 ML/MIN (>=60 (CALC)); GFR OTHER RACES > 60 ML/MIN (>=60 (CALC)); LIPASE 1416 u/l (23-300); SGOT/AST 32 u/l (19-48); SODIUM 142 mmol/l (137-146); TOTAL PROTEIN 7.5 g/dL (6.3-8.2)
--- NOTE | 2022-10-12 12:31 | NUR ---
Reassessment of patient completed. No distress noted.
--- NOTE | 2022-10-12 13:31 | NUR ---
Reassessment of patient completed. No distress noted. SPOUSE IN ROOM WITH PT
--- NOTE | 2022-10-12 14:30 | NUR ---
Reassessment of patient completed. No distress noted. PT IN BED RESTING WITH EYES OPEN. PT C/O ANXIETY HE REPORTS FEELING SCARED OF TEST RESULTS
--- NOTE | 2022-10-12 15:30 | NUR ---
Reassessment of patient completed. No distress noted. PT IS BEING ADMITTED TO MS. WAITING ON BED ASSIGNMENT
--- NOTE | 2022-10-12 16:45 | NUR ---
PT ADMITTED TO MS 274. TRANSPORTED PT VIA WHEELCHAIR. NAD. BEDSIDE REPORT GIVEN TO NURSE MURALI
[2022-10-12 17:48] LABS: URINE BILIRUBIN - DIPSTICK NEGATIVE (NEGATIVE); URINE BLOOD DIPSTICK TRACE-INTACT (NEGATIVE); URINE COLOR YELLOW; URINE GLUCOSE - DIPSTICK NEGATIVE (NEGATIVE); URINE KETONE NEGATIVE (NEGATIVE); URINE LEUK ESTERASE NEGATIVE (NEGATIVE); URINE PROTEIN - DIPSTICK NEGATIVE (NEG-TRACE); URINE SPECIFIC GRAVITY 1.025; URINE UROBILINOGEN - DIPSTICK 0.2 E.U./dL (0.2)
[2022-10-12 17:53] LABS: URINE NITRITE - DIPSTICK NEGATIVE (Negative)
--- NOTE | 2022-10-12 19:51 | NUR ---
PT A/OX3 PT AMBULATORY. IV SITE TO 20 LAC INFUSING WITH NS. HEART RHYTHM ON TELE, RESPIRATIONS ON ROOM AIR. URINE SAMPLE SENT TO LAB. MRSA SWAB SENT TO LAB PT STATED HX OF MRSA DUE TO LEG WOUND. PT STATED BM 09/11/22. PT DENIES PAIN AT THE TIME ALL SAFETY PRECAUTIONS IN PLACE WITH CALL LIGHT INREACH.
--- NOTE | 2022-10-12 20:00 | NUR ---
PATIENT RESTING IN BED AT THIS TIME-AWAKE ALERT AND ORIENTEDX3. PATIENT WITH NO COMPLAINTS AT THIS TIME. DENIES ANY PAIN OR NAUSEA. STATES THAT HE IS FEELING BETTER SINCE COMING TO THE HOSPITAL AND RECIEVING IVF. REMAINS NPO EXCEPT FOR ICE CHIPS. ABD IS SOFT WITH ACTIVEBS. LAST BM WAS YESTERDAY. VOIDING QS YELLOW URINE. 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 TELE MONITOR IN PLACE-LAST READING WAS PACED-54. LUNGS ARE CLEAR. NO PERIPHERAL EDEMA NOTED. SAFETY PRECAUTIONS REINFORCED. CALL LIGHT IN REACH. WILL CONT TO MONITOR.
--- NOTE | 2022-10-12 22:30 | NUR ---
RESTING IN BED-MEDICATED FOR SLEEP WITH SONATA 5MG PER PATIENT REQUEST. CALL LIGHT IN REACH. WILL CONT TO MONITOR.
[2022-10-13] VITALS: BP 147/77
--- NOTE | 2022-10-13 00:30 | NUR ---
PATIENT RESTING IN BED WITH EYES CLOSED. RESPS ARE EVEN AND UNLABORED. IVF NS PATENT AND INFUSING VIA LAC SITE AT 100CC/HR. SITE REMAINS HEALTHY. TELE MONITOR IN PLACE. CALL LIGHT IN REACH. WILL CONT TO MONITOR.
[2022-10-13 04:00] VITALS: BP 140/80
[2022-10-13 04:16] VITALS: BP 140/80
--- NOTE | 2022-10-13 04:30 | NUR ---
RESTING IN BED WITH EYES CLOSED. RESPS ARE EVEN AND UNLABORED. IVF NS PATENT AND INFUSING VIA LAC. TELE MONITOR IN PLACE. CALL LIGHT IN REACH. WILL CONT TO MONITOR.
[2022-10-13 05:31] LABS: HEMATOCRIT 41.6 % (39.0-50.0); HEMOGLOBIN 13.1 g/dl (14.0-18.0); IMMATURE GRANULOCYTES 0.2 % (0.0-5.0); MEAN CORPUSCULAR HGB 32.1 pG CALC (26.0-32.0); MEAN CORPUSCULAR HGB CONC 31.5 g/dL CAL (32.0-36.0); NEUT# 4.35 thou/uL (1.82-7.42); RED BLOOD COUNT 4.08 mill/uL (4.70-6.10); RED CELL DISTRI WIDTH 12.4 % (11.5-15.5)
[2022-10-13 05:40] LABS: ALBUMIN 3.5 g/dL (3.2-5.0); ALKALINE PHOSPHATASE 68 u/l (38-126); ANION GAP 8 (6-22 (CALC)); BILIRUBIN, TOTAL 0.5 mg/dL (0.0-1.4); BUN 15 mg/dL (8-23); BUN/CREATININE RATIO 17 (12-20 (CALC)); CARBON DIOXIDE 28 mmol/l (22-30); CHLORIDE 107 mmol/l (95-108); CREATININE 0.9 mg/dL (0.7-1.3); GFR FOR AFR.AMER. > 60 ML/MIN (>=60 (CALC)); GFR OTHER RACES > 60 ML/MIN (>=60 (CALC)); POTASSIUM 4.3 mmol/l (3.5-5.1); SGOT/AST 25 u/l (19-48); SODIUM 139 mmol/l (137-146); TOTAL PROTEIN 6.2 g/dL (6.3-8.2)
--- NOTE | 2022-10-13 06:15 | NUR ---
D10 INFUSION COMPLETED-REPEAT GLUCOSE METER-185. RESTING IN BED WILL CONT TO MONITOR.
[2022-10-13 07:26] VITALS: BP 164/62
--- NOTE | 2022-10-13 07:30 | NUR ---
PT A/OX3 ASSESSMENT AND VS COMPLETED. PT DENIES NEED OF NAUSEA MEDICATION AT THE TIME. PT DENIES PAIN. IV SITE NOTED TO LAC. HEART RHYTHM ON TELE. BOWEL SOUNDS ACTIVE PT REMINDED OF NPO DIET. ALL SAFETY PRECAUTIONS IN PLACE WITH CALL LIGHT INREACH.
[2022-10-13 11:28] VITALS: BP 155/62
--- NOTE | 2022-10-13 12:10 | NUR ---
PT EDUCATED OF NEED TO TOLERATE DIET WELL PRIOR POSSIBLE DC.
[2022-10-13] MEDS ORDERED: ONDANSETRON4 MG PO (13:19)
--- NOTE | 2022-10-13 14:47 | NUR ---
Discharge instructions given. Patient verbalizes understanding of same. Discharged in stable condition via Wheelchair to Home with spouse. All belongings sent with pt. IV REMOVED TELEREMOVED ER INFORMED.
== END 2022-10-13 14:47 | disposition home or self-care (01) | DRG 440 ==
LOC: ED 11:23 → ED-I 15:17 → ED 15:35 → MS2 15:36
PROVIDERS: Family Medicine; ADMIT Internal Medicine; ATTEND Internal Medicine
DX: K85.90 Acute pancreatitis without necrosis or infection, unspecified (principal); I10 Essential (primary) hypertension; G31.84 Mild cognitive impairment of uncertain or unknown etiology; I48.91 Unspecified atrial fibrillation; E78.5 Hyperlipidemia, unspecified; M19.90 Unspecified osteoarthritis, unspecified site; G25.81 Restless legs syndrome; F41.9 Anxiety disorder, unspecified; F32.A Depression, unspecified; Z20.822 Contact with and (suspected) exposure to COVID-19
CPT/HCPCS: Q9967

== ENCOUNTER 2023-01-29 17:52 | Inpatient (IN) | payer MEDICARE ==
[2023-01-29] VITALS (14 sets, daily range): BP systolic 137–170; BP diastolic 54–81
[~2023-01-29] VITALS: Ht 172.7 cm; Wt 115.0 kg
[~2023-01-29 17:52] MED LIST changes: +PEPCID20 MG PO; +PROTONIX40 MG PO; +REGLAN10 MG PO
[2023-01-29 20:10] LABS: URINE BILIRUBIN - DIPSTICK NEGATIVE (NEGATIVE); URINE BLOOD DIPSTICK TRACE-INTACT (NEGATIVE); URINE COLOR YELLOW; URINE GLUCOSE - DIPSTICK NEGATIVE (NEGATIVE); URINE KETONE NEGATIVE (NEGATIVE); URINE LEUK ESTERASE NEGATIVE (NEGATIVE); URINE PROTEIN - DIPSTICK NEGATIVE (NEG-TRACE); URINE SPECIFIC GRAVITY >=1.030; URINE UROBILINOGEN - DIPSTICK 0.2 E.U./dL (0.2)
[2023-01-29 20:14] LABS: BASO% 0.2 % (0-3); EOS% 0.4 % (0-8); HEMATOCRIT 40.9 % (39.0-50.0); LYMPH% 12.1 % (15-41); MEAN CELL VOLUME 98.3 fL CALC (80.0-100.0); MEAN CORPUSCULAR HGB 31.3 pG CALC (26.0-32.0); MEAN CORPUSCULAR HGB CONC 31.8 g/dL CAL (32.0-36.0); NEUT# 12.94 thou/uL (1.82-7.42); NEUT% 78.3 % (42-76); RED BLOOD COUNT 4.16 mill/uL (4.70-6.10); RED CELL DISTRI WIDTH 13.6 % (11.5-15.5); URINE NITRITE - DIPSTICK NEGATIVE (Negative)
[2023-01-29 20:25] LABS: ALBUMIN 4.3 g/dL (3.2-5.0); ALKALINE PHOSPHATASE 66 u/l (38-126); ANION GAP 12 (6-22 (CALC)); BUN 32 mg/dL (8-23); BUN/CREATININE RATIO 27 (12-20 (CALC)); CARBON DIOXIDE 26 mmol/l (22-30); CHLORIDE 105 mmol/l (95-108); CREATININE 1.2 mg/dL (0.7-1.3); GFR FOR AFR.AMER. > 60 ML/MIN (>=60 (CALC)); GFR OTHER RACES 58 ML/MIN (>=60 (CALC)); LIPASE 105 u/l (23-300); POTASSIUM 4.9 mmol/l (3.5-5.1); SGOT/AST 26 u/l (19-48); SODIUM 138 mmol/l (137-146); TOTAL PROTEIN 7.3 g/dL (6.3-8.2)
[2023-01-29 20:39] LABS: BILIRUBIN, TOTAL 0.7 mg/dL (0.2-1.3)
[2023-01-30] VITALS (31 sets, daily range): BP systolic 103–158; BP diastolic 45–122
[2023-01-31 03:02] VITALS: BP 153/55
[2023-01-31 05:43] LABS: BASO% 0.2 % (0-3); HEMATOCRIT 40.2 % (39.0-50.0); HEMOGLOBIN 12.7 g/dl (14.0-18.0); IMMATURE GRANULOCYTES 0.6 % (0.0-5.0); MEAN CELL VOLUME 99.8 fL CALC (80.0-100.0); MEAN CORPUSCULAR HGB 31.5 pG CALC (26.0-32.0); MEAN CORPUSCULAR HGB CONC 31.6 g/dL CAL (32.0-36.0); MONO% 9.1 % (2-13); NEUT# 10.45 thou/uL (1.82-7.42); NEUT% 83.1 % (42-76); RED BLOOD COUNT 4.03 mill/uL (4.70-6.10); RED CELL DISTRI WIDTH 13.9 % (11.5-15.5)
[2023-01-31 05:57] LABS: ALKALINE PHOSPHATASE 50 u/l (38-126); BUN 31 mg/dL (8-23); BUN/CREATININE RATIO 26 (12-20 (CALC)); CARBON DIOXIDE 28 mmol/l (22-30); CHLORIDE 104 mmol/l (95-108); CREATININE 1.2 mg/dL (0.7-1.3); GFR FOR AFR.AMER. > 60 ML/MIN (>=60 (CALC)); GFR OTHER RACES 58 ML/MIN (>=60 (CALC)); SGOT/AST 19 u/l (19-48); SODIUM 138 mmol/l (137-146)
[2023-01-31 06:00] LABS: ALBUMIN 3.3 g/dL (3.2-5.0); ANION GAP 11 (6-22 (CALC)); POTASSIUM 5.2 mmol/l (3.5-5.1); TOTAL PROTEIN 5.7 g/dL (6.3-8.2)
[2023-01-31 11:07] VITALS: BP 144/50
[2023-01-31 13:49] VITALS: BP 144/42
[2023-01-31 21:42] VITALS: BP 147/53
== END 2023-01-31 22:42 | disposition short-term general hospital (02) | DRG 394 ==
LOC: ED 17:52 → ED-I 01-30 00:05 → ED 01-30 00:35 → ICU 01-30 00:36 → MS2 01-30 08:14 → ICU 01-30 08:14 → MS2 01-30 11:20
PROVIDERS: Family Medicine; ADMIT Surgery; ATTEND Surgery
DX: K43.0 Incisional hernia with obstruction, without gangrene (principal); T83.718A Erosion of other implanted mesh to organ or tissue, initial encounter; I10 Essential (primary) hypertension; E78.5 Hyperlipidemia, unspecified; I48.91 Unspecified atrial fibrillation; F41.9 Anxiety disorder, unspecified; F32.A Depression, unspecified; G31.84 Mild cognitive impairment of uncertain or unknown etiology; Y83.2 Surgical operation with anastomosis, bypass or graft as the cause of abnormal reaction of the patient, or of later complication, without mention of misadventure at the time of the procedure; Z95.0 Presence of cardiac pacemaker; Z20.822 Contact with and (suspected) exposure to COVID-19; Z90.49 Acquired absence of other specified parts of digestive tract
CPT/HCPCS: Q9967

== ENCOUNTER 2023-11-23 19:13 | Emergency (ER) | payer MEDICARE ==
[~2023-11-23] VITALS: Ht 172.7 cm; Wt 80.0 kg
[2023-11-23 19:37] VITALS: BP 126/60
[2023-11-23 19:58] VITALS: BP 126/60
== END 2023-11-23 20:05 | disposition home or self-care (01) ==
LOC: ED 19:13
DX: K43.9 Ventral hernia without obstruction or gangrene (principal); I10 Essential (primary) hypertension; E78.5 Hyperlipidemia, unspecified

== ENCOUNTER 2024-07-06 08:18 | Day surgery (SDC) | payer MEDICARE ==
[~2024-07-06] VITALS: Ht 180.3 cm; Wt 105.2 kg
[~2024-07-06 08:18] MED LIST changes: +AMBIEN10 MG PO; +AMLODIPINE BESYL5 MG PO; +B121000 MC1 PO; +COZAAR50 MG PO; +ESCITALOPRAM OXA5 MG PO; +FUROSEMIDE20 MG PO; +IRON325 M1 PO; +NORVASC10 M1 PO; +PREDNISONE20 MG PO; +SLOW MAGNESIUM PO; +VIBRAMYCIN100 M2 PO; +WELLBUTRIN XL300 MG PO
[2024-07-06] MEDS ORDERED: LACTATED RINGER'S 1,000 ML IV ONE (08:26)
[2024-07-06] MEDS ORDERED: FAMOTIDINE 10MG/ML 2ML SDV IV ONE (08:26)
[2024-07-06 10:56] VITALS: BP 134/72
[2024-07-06] MEDS ORDERED: PROPOFOL 200 MG/20 ML VIAL IV ONE (14:19)
[2024-07-06] MEDS ORDERED: LIDOCAINE HCL 2% 2ML SDV IV ONE (14:19)
== END 2024-07-06 11:17 | disposition home or self-care (01) ==
LOC: ORM 08:18
PROVIDERS: ATTEND Surgery
PROC: 0DB78ZX Excision of Stomach, Pylorus, Via Natural or Artificial Opening Endoscopic, Diagnostic (ICD-10-PCS; principal; 2024-07-06)
DX: K29.50 Unspecified chronic gastritis without bleeding (principal); K44.9 Diaphragmatic hernia without obstruction or gangrene; T18.108A Unspecified foreign body in esophagus causing other injury, initial encounter; I10 Essential (primary) hypertension; I48.91 Unspecified atrial fibrillation; E78.5 Hyperlipidemia, unspecified; W44.9XXA Unspecified foreign body entering into or through a natural orifice, initial encounter; Z87.19 Personal history of other diseases of the digestive system; Z95.2 Presence of prosthetic heart valve; Z95.0 Presence of cardiac pacemaker; Z80.0 Family history of malignant neoplasm of digestive organs

== ENCOUNTER 2024-08-14 12:01 | Emergency (ER) | payer MEDICARE ==
[2024-08-14] VITALS (10 sets, daily range): BP systolic 115–147; BP diastolic 37–97
[~2024-08-14] VITALS: Ht 180.3 cm; Wt 105.2 kg
[2024-08-14 13:08] LABS: URINE BILIRUBIN - DIPSTICK Negative (NEGATIVE); URINE BLOOD DIPSTICK Trace-intact (NEGATIVE); URINE GLUCOSE - DIPSTICK Negative (NEGATIVE); URINE KETONE Negative (NEGATIVE); URINE LEUK ESTERASE Negative (NEGATIVE); URINE NITRITE - DIPSTICK Negative (Negative); URINE PH 5.5 (4.5-8.0); URINE PROTEIN - DIPSTICK Negative (NEG-TRACE); URINE SPECIFIC GRAVITY 1.015; URINE UROBILINOGEN - DIPSTICK 0.2 E.U./dL (0.2)
[2024-08-14 13:09] LABS: URINE COLOR Yellow
[2024-08-14 15:23] LABS: BASO% 0.3 % (0-3); EOS% 1.3 % (0-8); HEMATOCRIT 38.3 % (39.0-50.0); HEMOGLOBIN 12.6 g/dl (14.0-18.0); IMMATURE GRANULOCYTES 0.2 % (0.0-5.0); LYMPH% 15.1 % (15-41); MEAN CELL VOLUME 99.7 fL CALC (80.0-100.0); MEAN CORPUSCULAR HGB 32.8 pG CALC (26.0-32.0); MEAN CORPUSCULAR HGB CONC 32.9 g/dL CAL (32.0-36.0); MONO% 7.6 % (2-13); NEUT# 6.79 thou/uL (1.82-7.42); NEUT% 75.5 % (42-76); RED BLOOD COUNT 3.84 mill/uL (4.70-6.10); RED CELL DISTRI WIDTH 12.4 % (11.5-15.5)
[2024-08-14 15:37] LABS: ALBUMIN 4.1 g/dL (3.2-5.0); BILIRUBIN, TOTAL 0.8 mg/dL (0.2-1.3); CREATININE 1.4 mg/dL (0.7-1.3); POTASSIUM 4.7 mmol/l (3.5-5.1); TOTAL PROTEIN 6.8 g/dL (6.3-8.2)
== END 2024-08-14 16:27 | disposition home or self-care (01) ==
LOC: ED 12:01
PROVIDERS: Family Medicine
DX: K59.00 Constipation, unspecified (principal); R33.9 Retention of urine, unspecified; I10 Essential (primary) hypertension; E78.5 Hyperlipidemia, unspecified

== ENCOUNTER 2024-08-22 12:12 | Emergency (ER) | payer MEDICARE ==
[2024-08-22] VITALS (9 sets, daily range): BP systolic 111–141; BP diastolic 53–88
[~2024-08-22] VITALS: Ht 177.8 cm; Wt 104.0 kg
[2024-08-22 12:44] LABS: BASO% 0.5 % (0-3); EOS% 2.7 % (0-8); HEMATOCRIT 42.2 % (39.0-50.0); HEMOGLOBIN 13.6 g/dl (14.0-18.0); IMMATURE GRANULOCYTES 0.4 % (0.0-5.0); LYMPH% 16.8 % (15-41); MEAN CELL VOLUME 101.7 fL CALC (80.0-100.0); MEAN CORPUSCULAR HGB 32.8 pG CALC (26.0-32.0); MEAN CORPUSCULAR HGB CONC 32.2 g/dL CAL (32.0-36.0); MONO% 7.8 % (2-13); NEUT# 6.01 thou/uL (1.82-7.42); NEUT% 71.8 % (42-76); RED BLOOD COUNT 4.15 mill/uL (4.70-6.10); RED CELL DISTRI WIDTH 12.3 % (11.5-15.5)
[2024-08-22] MEDS ORDERED: MORPHINE SULFATE 4 MG/ML VIAL IV ONE (12:50)
[2024-08-22 12:55] LABS: ALBUMIN 4.3 g/dL (3.2-5.0); BILIRUBIN, TOTAL 0.8 mg/dL (0.2-1.3); CREATININE 1.2 mg/dL (0.7-1.3); MAGNESIUM 2.1 mg/dL (1.6-2.3); TOTAL PROTEIN 7.2 g/dL (6.3-8.2)
[2024-08-22 13:10] LABS: ACT PARTIAL THROMBO TIME 27.2 SECONDS (20.0-32.5)
[2024-08-22 13:15] LABS: D-DIMER 0.4 mg/L (0.19-0.60)
[2024-08-22 15:32] LABS: URINE BILIRUBIN - DIPSTICK Negative (NEGATIVE); URINE BLOOD DIPSTICK Trace-lysed (NEGATIVE); URINE GLUCOSE - DIPSTICK Negative (NEGATIVE); URINE KETONE Negative (NEGATIVE); URINE LEUK ESTERASE Negative (NEGATIVE); URINE NITRITE - DIPSTICK Negative (Negative); URINE PH 5.5 (4.5-8.0); URINE PROTEIN - DIPSTICK Negative (NEG-TRACE); URINE SPECIFIC GRAVITY 1.015; URINE UROBILINOGEN - DIPSTICK 0.2 E.U./dL (0.2)
[2024-08-22 15:33] LABS: URINE COLOR Yellow
== END 2024-08-22 16:37 | disposition home or self-care (01) ==
LOC: ED 12:12
PROVIDERS: Clinical Nurse Specialist Emergency
DX: R10.11 Right upper quadrant pain (principal); K43.9 Ventral hernia without obstruction or gangrene; I10 Essential (primary) hypertension; E78.5 Hyperlipidemia, unspecified; Z95.2 Presence of prosthetic heart valve; Z95.0 Presence of cardiac pacemaker